=== PATIENT | male | born 1955 | race Caucasian/White ===

== ENCOUNTER 2021-04-19 05:22 | Inpatient (IN) | payer OTHER ==
[~2021-04-19] VITALS: Ht 172.7 cm; Wt 86.2 kg
[2021-04-19] VITALS (16 sets, daily range): BP systolic 94–140; BP diastolic 56–110
--- NOTE | 2021-04-19 05:30 | NUR ---
PATIENT BIBRA 81 FROM [facility] FOR SOB AND LOW O2 SAT, 80% ON SCENE, 15L NONRBR UPON ARRIVAL. PATIENT IS A/O X 4, RR LABORED, PATIENT ON 15L NON REBREATHER O2 AT 100%. PATIENT CONNECTED TO FACIALIST AND POX.
--- NOTE | 2021-04-19 05:36 | NUR ---
RT AT BED SIDE TO PLACE PT ON BIPAP
--- NOTE | 2021-04-19 05:45 | NUR ---
RT NOTES PT placed on BIPAP via large face mask on settings IPAP 15, EPAP 5, RATE 16, FIO2 40% per MD Christina. Ambubag at bedside. Will cont to monitor.
[2021-04-19 05:49] LABS: BASOPHILS % (AUTO) 0.6 % (0.0-2.0); EOSINOPHILS % (AUTO) 2.6 % (0.0-6.0); HEMATOCRIT 32 % (39-51); HEMOGLOBIN 9.8 g/dL (13.5-17.5); LYMPHOCYTES # (AUTO) 1.3 K/uL (0.8-4.8); LYMPHOCYTES % (AUTO) 17.2 % (20.0-44.0); MEAN CORPUSCULAR HGB CONC 31 g/dl (31.0-36.0); MEAN CORPUSCULAR VOLUME 76 fL (80-96); MONOCYTES # (AUTO) 0.8 K/uL (0.1-1.30); MONOCYTES % (AUTO) 10.4 % (2.0-12.0); NEUTROPHILS # (AUTO) 5.1 K/uL (1.8-8.9); NEUTROPHILS % (AUTO) 69.2 % (43.0-81.0); PLATELET COUNT (AUTO) 230 K/uL (150-450); RED BLOOD CELL COUNT(AUTO) 4.17 MIL/uL (4.5-6.0); WHITE BLOOD COUNT (AUTO) 7.4 K/uL (4.3-11.0)
--- NOTE | 2021-04-19 06:00 | NUR ---
dr redmond at bed side
--- NOTE | 2021-04-19 06:10 | NUR ---
move sheet submitted
[2021-04-19 06:18] LABS: CALCIUM, SERUM 8.8 mg/dL (8.5-10.1); CARBON DIOXIDE 26 mmol/L (21-32); CHLORIDE 106 mmol/L (98-107); GLUCOSE 164 mg/dL (74-106); POTASSIUM 4.1 mmol/L (3.5-5.1); SODIUM SERUM 141 mmol/L (136-145); UREA NITROGEN, BLOOD 20 mg/dL (7-18)
--- NOTE | 2021-04-19 06:24 | NUR ---
COVID SWAB COLLECTED AND SENT TO LAB
[2021-04-19] MEDS ORDERED: FUROSEMIDE 20 MG/2 ML VIAL ONE (06:25)
--- NOTE | 2021-04-19 06:27 | NUR ---
ICU 257 AFTER CHANGE OF SHIFT PER NURS SUP
[2021-04-19] MEDS ORDERED: FUROSEMIDE 20 MG/2 ML VIAL IV ONE (06:30)
--- NOTE | 2021-04-19 07:01 | NUR ---
[facility] CM CALLED TO INFORM THEY ARE STILL AWAITING APPROVAL FROM ADMITTING DOCTOR. WILL CALL BACK IN A FEW MINUTES.
--- NOTE | 2021-04-19 07:15 | NUR ---
DR MORENO ON THE PHONE WITH DR XIAO
--- NOTE | 2021-04-19 07:25 | NUR ---
DR. ESPINO ACCEPTED THE PATIENT FOR ADMISSION.
--- NOTE | 2021-04-19 07:37 | NUR ---
REPORT GIVEN TO ANJEL DUFFY IN ICU.
--- NOTE | 2021-04-19 07:40 | NUR ---
RN NOTE REPORT RECEIVED FROM BRICK VENEER MAKERCLIVE MELGAR.
[2021-04-19 08:14] LABS: ABG BASE EXCESS 5.2 mmol/L; ABG OXYGEN SATURATION 97.1 % (92.0-98.5); ABG PCO2 49.2 mmHg (35.0-45.0); ABG PH 7.413 (7.350-7.450); ABG PO2 103.5 mmHg (75.0-100.0); AaDO2 125.1 mmHg; COHb 0.5 % (0.5-1.5); MetHb 0.2 % (0.0-1.5); O2Hb 96.4 % (94.0-97.0); SITE, ABG Right Radial; VENT MODE, BG ST 15/5 BUR 16 40%
[2021-04-19] MEDS ORDERED: DEXTROSE 50%-WATER 50 ML DISP.SYRIN IV PRN (08:30)
--- NOTE | 2021-04-19 08:45 | NUR ---
DR. ESPINO AT BEDSIDE.
--- NOTE | 2021-04-19 09:02 | NUR ---
PATIENT TRANSFERRED TO ROOM 254 VIA ACLS PROTOCOL, PATIENT ON HEAVY EQUIPMENT OPERATOR/PAVER. NO DSITRESS NOTED. NEEDS ATTENDED. ENDORSED TO ANJEL DUFFY.
[2021-04-19] MEDS: ALBUTEROL HALF STRENGTH 1.25 MG/3 ML VIAL.NEB NEB SCH ×3 (09:03→19:58)
[2021-04-19] MEDS: IPRATROPIUM NEB FS 0.5 MG/2.5 ML AMPUL.NEB NEB SCH ×3 (09:03→19:58)
--- NOTE | 2021-04-19 09:05 | NUR ---
RN RECEIVING NOTES RECEIVED PATIENT A&O X4, ON O2 5L VIA NASAL CANNULA SATURATING WELL. NOT IN ANY DISTRESS. ST ON BEDSIDE MONITOR. PERIPHERAL LINES X2 RIGHT ARM. NO COMPLAINS OF PAIN. SAFETY CHECKS IN PLACE. WILL CONTINUE TO MONITOR.
[2021-04-19] MEDS: CEFTRIAXONE 1 G in IV D5W 50 ML IV SCH (09:12)
[2021-04-19] MEDS: CARVEDILOL 6.25 MG TABLET PO SCH ×2 (09:20→21:23)
[2021-04-19] MEDS: FUROSEMIDE 40 MG/4 ML VIAL IV SCH ×2 (09:20→17:09)
[2021-04-19] MEDS: LISINOPRIL (20MG) 20 MG TABLET PO SCH (09:21)
[2021-04-19] MEDS: AZITHROMYCIN 500 MG in IV D5W 250 ML IV SCH (09:31)
[2021-04-19] MEDS: APIXABAN 5 MG TABLET PO SCH ×2 (09:31→17:12)
[2021-04-19] MEDS: BLOOD SUGAR DIAGNOSTIC 1 EACH STRIP VI SCH ×3 (11:11→21:33)
[2021-04-19] MEDS: INSULIN REGULAR, HUMAN 100 UNIT/ML 3 ML VIAL SQ PRN ×3 (11:14→21:34)
--- NOTE | 2021-04-19 18:09 | NUR ---
RN NOTES PATIENT SATURATING 97% ON 3L NASAL CANNULA. NOT IN ANY RESPIRATORY DISTRESS. SR ON BEDSIDE MONITOR. TOLERATING MEALS. BLOOD SUGAR ELEVATED AND WAS COVERED WITH INSULIN ACCORDINGLY. DUE MEDICATIONS GIVEN, VOIDING ADEQUATELY WITH THE URINAL. SAFETY CHECKS IN PLACE. WILL ENDORSE TO NIGHT RN FOR CONTINUITY OF CARE.
--- NOTE | 2021-04-19 19:41 | NUR ---
RN NOTE PATIENT AWAKE, RESPONSIVE. ABLE TO MAKE NEEDS KNOWN. ON O2 3L VIA NASAL CANNULA, NO SIGNS OF RESPIRATORY DISTRESS AT THIS TIME. O2 SAT >97%. DENIES ANY PAIN AT THIS TIMEE. IV ACCESS ON RIGHT FOREARM #18 AND RIGHT AC #20 PATENT AND INTACT. BED LOCKED AND IN LOWEST POSITION. CALL LIGHT WITHIN REACH. ALL NEEDS ANTICIPATED.
[2021-04-19] MEDS ORDERED: ZOLPIDEM TARTRATE 5 MG TABLET PO PRN (21:00)
[2021-04-19] MEDS: ATORVASTATIN 10 MG TABLET PO SCH (21:23)
[2021-04-19] MEDS: ACETAMINOPHEN 325 MG TABLET PO PRN (21:24)
[2021-04-19] MEDS: *INSULIN REGULAR(HUMULIN R)HUM 100 UNIT/ML VIAL SQ PRN (21:49)
[2021-04-20] VITALS (14 sets, daily range): BP systolic 110–156; BP diastolic 65–128
[2021-04-20] MEDS: IPRATROPIUM NEB FS 0.5 MG/2.5 ML AMPUL.NEB NEB SCH ×4 (01:03→19:56)
[2021-04-20] MEDS: ALBUTEROL HALF STRENGTH 1.25 MG/3 ML VIAL.NEB NEB SCH ×4 (01:03→19:56)
[2021-04-20 04:27] LABS: BASOPHILS % (AUTO) 0.5 % (0.0-2.0); EOSINOPHILS % (AUTO) 4.9 % (0.0-6.0); HEMATOCRIT 32 % (39-51); HEMOGLOBIN 10.1 g/dL (13.5-17.5); LYMPHOCYTES # (AUTO) 1.8 K/uL (0.8-4.8); LYMPHOCYTES % (AUTO) 30.5 % (20.0-44.0); MEAN CORPUSCULAR HGB CONC 31 g/dl (31.0-36.0); MEAN CORPUSCULAR VOLUME 76 fL (80-96); MONOCYTES # (AUTO) 0.6 K/uL (0.1-1.30); MONOCYTES % (AUTO) 10.1 % (2.0-12.0); NEUTROPHILS # (AUTO) 3.2 K/uL (1.8-8.9); PLATELET COUNT (AUTO) 256 K/uL (150-450); RED BLOOD CELL COUNT(AUTO) 4.27 MIL/uL (4.5-6.0)
[2021-04-20 04:43] LABS: CREATININE 1.1 mg/dL (0.6-1.3); POTASSIUM 3.6 mmol/L (3.5-5.1)
[2021-04-20 04:58] LABS: THYROID STIMULATING HORMONE 1.121 uIU/mL (0.358-3.74)
--- NOTE | 2021-04-20 06:50 | NUR ---
RN NOTE PATIENT ALERT AND ORIENTED X3. ON O2 3L VIA NASAL CANNULA, NO SIGNS OF RESPIRATORY DISTRESS AT THIS TIME. O2 SAT >98%. IV ACCESS ON RIGHT FOREARM #18 AND RIGHT AC #20 PATENT AND INTACT. NO SIGNIFICANT CHANGES DURING THIS SHIFT. VOIDED 1875 CC YELLOW CLEAR URINE VIA URINAL. BED LOCKED AND IN LOWEST POSITION. CALL LIGHT WITHIN REACH. WILL ENDORSE TO AM SHIFT.
--- NOTE | 2021-04-20 07:08 | NUR ---
WOUND CARE CONSULT: PT SEEN FOR 5TH TOE AMPUTATION SCAR TO RT FOOT, PRESENT ON ADMISSION. PT ALSO NOTED TO HAVE SACRAL SCAR. PT STATES HAD SACRAL WOUND YEARS AGO. PT DEMONSTRATES ABILITY TO TURN AND REPOSITION IN BED AND IS CONTINENT AT THIS TIME. WILL SEE PRN.
--- NOTE | 2021-04-20 07:30 | NUR ---
RN OPENING NOTES RECEIVED PATIENT A&O X4. SATURATING 98% ON 3L NASAL CANNULA AND NOT IN ANY RESPIRATORY DISTRESS. AFIB ON BEDSIDE MONITOR. PERIPHERAL LINES X2 AT THE RIGHT ARM. PASSING URINE VIA URINAL. NO COMPLAINS OF CHEST PAIN OR PAIN ELSEWHERE IN THE BODY. SAFETY CHECKS IN PLACE. WILL CONTINUE TO MONITOR.
[2021-04-20] MEDS: BLOOD SUGAR DIAGNOSTIC 1 EACH STRIP VI SCH ×4 (08:09→21:18)
[2021-04-20] MEDS: APIXABAN 5 MG TABLET PO SCH ×2 (08:10→16:32)
[2021-04-20] MEDS: CARVEDILOL 6.25 MG TABLET PO SCH (08:10)
[2021-04-20] MEDS: FUROSEMIDE 40 MG/4 ML VIAL IV SCH ×2 (08:11→16:30)
[2021-04-20] MEDS: INSULIN REGULAR, HUMAN 100 UNIT/ML 3 ML VIAL SQ PRN ×3 (08:11→17:27)
[2021-04-20] MEDS: CEFTRIAXONE 1 G in IV D5W 50 ML IV SCH (08:11)
[2021-04-20] MEDS: LISINOPRIL (20MG) 20 MG TABLET PO SCH (08:12)
[2021-04-20] MEDS ORDERED: LOSA50TA39 PO (08:36)
[2021-04-20] MEDS ORDERED: INSU100I4 SQ ×2 (08:36)
[2021-04-20] MEDS ORDERED: MULT-439 PO (08:36)
[2021-04-20] MEDS ORDERED: INSU100V7 SQ (08:36)
[2021-04-20] MEDS ORDERED: METO200T49 PO (08:36)
[2021-04-20] MEDS ORDERED: LINA5TAB PO (08:36)
[2021-04-20] MEDS ORDERED: APIX5TAB PO (08:36)
[2021-04-20] MEDS ORDERED: DIGO250T PO (08:36)
[2021-04-20] MEDS ORDERED: ACET325T53 PO (08:36)
[2021-04-20] MEDS ORDERED: GABA-532 PO (08:36)
[2021-04-20] MEDS ORDERED: ATOR20TA PO (08:36)
[2021-04-20] MEDS ORDERED: ASCO500C17 PO (08:36)
[2021-04-20] MEDS ORDERED: FLUT1BLS IH (08:36)
[2021-04-20] MEDS ORDERED: IPRA4AER IH (08:36)
[2021-04-20] MEDS ORDERED: PANT40TA2 PO (08:36)
[2021-04-20] MEDS ORDERED: AMLO5TAB4 PO (08:36)
[2021-04-20] MEDS: FERROUS SULFATE (325 MG) 325 MG/TAB TABLET PO SCH ×2 (08:38→16:31)
[2021-04-20] MEDS: AZITHROMYCIN 500 MG in IV D5W 250 ML IV SCH (09:02)
--- NOTE | 2021-04-20 10:45 | NUR ---
RN NOTE REPORT GIVEN TO CLIVE SCOTT FOR CONTINUITY OF CARE. PATIENT ARRIVED AT RM 321-2 IN STABLE CONDITION AND NOT IN ANY DISTRESS. BELONGINGS HANDED OVER TO RN.
--- NOTE | 2021-04-20 11:34 | NUR ---
MS RN NOTES PT TRANSFERRED FROM ICU TO UNIT RM 321-2 VIA WHEELCHAIR AT 1100 ACCOMPANIED BY DRINK WAITER MILENA. PT IS A/O X4. ABLE TO MAKE NEEDS KNOWN, DENIES PAIN OR ANY DISCOMFORTS. ON 02 VIA N/C AT 3LPM, TOLERATING WELL WITH NO C/O SOB VOICED. PIV'S ON RAC G#20 AND RFA G#18 BOTH INTACT AND PATENT. SKIN IS INTACT. LEFT FOOT WITH ALL TOES AMPUTATED AND RIGHT 5TH TOE AMPUTATED WITH NO ACTIVE DRAINAGE NOTED. SAFETY MEASURES IMPLEMENTED: BED PLACED IN LOWEST LOCKED POSITION WITH SR UP X2. CALL LIGHT W/I EASY REACH OF PT. WILL CONTINUE TO MONITOR PT.
[2021-04-20] MEDS: INSULIN ASPART/LISPRO 100 UNIT/ML CARTRIDGE SQ SCH ×2 (13:00→17:28)
[2021-04-20] MEDS ORDERED: Medication Not On Formulary EA (Ipratropium/Albuterol Sulfate (Combivent Respimat 20-100 IH PRN (13:00)
[2021-04-20] MEDS ORDERED: ACETAMINOPHEN 325 MG TABLET PO PRN (13:00)
[2021-04-20] MEDS ORDERED: HOME MED MISCELLANEOUS XX SCH (13:00)
[2021-04-20] MEDS: GABAPENTIN 300 MG CAPSULE PO SCH ×2 (13:05→16:30)
--- NOTE | 2021-04-20 13:27 | NUR ---
RN NOTES PHYSICAL THERAPY EVALLUATION DONE BY JAIME MERCER DEMONSTRATED SAFE GAIT WITH FWW AND IS SAFE TO WALK WITH STAFF SUPERVISION.
[2021-04-20] MEDS: AMLODIPINE BESYLATE 5 MG TABLET PO SCH (16:31)
[2021-04-20] MEDS ORDERED: APIXABAN 5 MG TABLET PO SCH (17:00)
--- NOTE | 2021-04-20 18:50 | NUR ---
MS ARLIN NOTES PT IN BED WATCHING TV AT THIS TIME. HOB KEPT ELEVATED. A/O X4. ABLE TO MAKE NEEDS KNOWN. ON SUPPLEMENTAL 02 VIA N/C AT 3LPM, TOLERATING WELL WITH NO SOB NOTED AT THIS TIME. PIV'S ON RAC G#20 AND RFA G#18 BOTH INTACT, PATENT AND FLUSHES WELL. ALL NEEDS AND CARE ATTENDED WELL. SAFETY MEASURES KEPT IN PLACE: BED LOCKED AND AT LOWEST POSITION, SIDE-RAILS UP X2 AND CALL LIGHT WITH EASY REACH OF PT. WILL ENDORSE ANTON TO DIESEL PILE DRIVER OPERATOR NURSE.
[2021-04-20] MEDS: ATORVASTATIN 10 MG TABLET PO SCH (21:17)
[2021-04-20] MEDS: LOSARTAN POTASSIUM 50 MG TABLET PO SCH (21:18)
[2021-04-20] MEDS: *INSULIN REGULAR(HUMULIN R)HUM 100 UNIT/ML VIAL SQ PRN (21:44)
[2021-04-20] MEDS ORDERED: INSULIN GLARGINE, 100 UNIT/ML CARTRIDGE SQ SCH (22:00)
[2021-04-20] MEDS ORDERED: Medication Not On Formulary EA (Atorvastatin Calcium (Lipitor) 20 MG) PO SCH (22:00)
[2021-04-21] MEDS: ACETAMINOPHEN 325 MG TABLET PO PRN (01:14)
--- NOTE | 2021-04-21 01:15 | NUR ---
RN NOTES PATIENT ASKED FOR TYLENOL - TYLENOL 650MG PO GIVEN ORDERED
[2021-04-21] MEDS: ALBUTEROL HALF STRENGTH 1.25 MG/3 ML VIAL.NEB NEB SCH ×3 (01:55→13:32)
[2021-04-21] MEDS: IPRATROPIUM NEB FS 0.5 MG/2.5 ML AMPUL.NEB NEB SCH ×3 (01:55→13:32)
[2021-04-21 06:16] LABS: BASOPHILS # (AUTO) 0.1 K/uL (0.0-0.2); BASOPHILS % (AUTO) 0.8 % (0.0-2.0); EOSINOPHILS % (AUTO) 3.9 % (0.0-6.0); HEMATOCRIT 36 % (39-51); HEMOGLOBIN 11.1 g/dL (13.5-17.5); LYMPHOCYTES # (AUTO) 2.1 K/uL (0.8-4.8); LYMPHOCYTES % (AUTO) 28.2 % (20.0-44.0); MEAN CORPUSCULAR HGB CONC 31 g/dl (31.0-36.0); MEAN CORPUSCULAR VOLUME 76 fL (80-96); MONOCYTES # (AUTO) 0.9 K/uL (0.1-1.30); NEUTROPHILS # (AUTO) 4.2 K/uL (1.8-8.9); NEUTROPHILS % (AUTO) 55.1 % (43.0-81.0); PLATELET COUNT (AUTO) 305 K/uL (150-450); RED BLOOD CELL COUNT(AUTO) 4.68 MIL/uL (4.5-6.0); WHITE BLOOD COUNT (AUTO) 7.5 K/uL (4.3-11.0)
[2021-04-21] MEDS: INSULIN REGULAR, HUMAN 100 UNIT/ML 3 ML VIAL SQ PRN ×3 (06:19→16:47)
--- NOTE | 2021-04-21 07:00 | NUR ---
RN NOTES AWAKE, DENIES PAIN, NO SOB, MORNING CARE RENDERED, PT. NEEDS ATTENDED
[2021-04-21 07:09] LABS: CALCIUM, SERUM 9.2 mg/dL (8.5-10.1); CREATININE 1.2 mg/dL (0.6-1.3); MAGNESIUM 1.8 mg/dL (1.8-2.4); POTASSIUM 3.5 mmol/L (3.5-5.1)
[2021-04-21] MEDS: BLOOD SUGAR DIAGNOSTIC 1 EACH STRIP VI SCH ×3 (07:33→16:47)
[2021-04-21] MEDS: GABAPENTIN 300 MG CAPSULE PO SCH ×3 (08:11→16:28)
[2021-04-21] MEDS: FERROUS SULFATE (325 MG) 325 MG/TAB TABLET PO SCH ×2 (08:11→16:28)
[2021-04-21] MEDS: AMLODIPINE BESYLATE 5 MG TABLET PO SCH ×2 (08:12→16:14)
[2021-04-21] MEDS: APIXABAN 5 MG TABLET PO SCH ×2 (08:17→16:29)
[2021-04-21] MEDS: INSULIN ASPART/LISPRO 100 UNIT/ML CARTRIDGE SQ SCH ×2 (08:31→13:51)
[2021-04-21 08:38] VITALS: BP 126/91
[2021-04-21] MEDS ORDERED: FURO-144 PO (08:55)
[2021-04-21] MEDS ORDERED: POTA20PA41 PO (08:55)
[2021-04-21] MEDS: CEFTRIAXONE 1 G in IV D5W 50 ML IV SCH (08:56)
[2021-04-21] MEDS ORDERED: LEVO500T90 PO (08:56)
[2021-04-21] MEDS ORDERED: FLUTICASONE/VILANTEROL 1 EACH BLST.W.DEV IH SCH (09:00)
[2021-04-21] MEDS ORDERED: DIGOXIN 0.25 MG TABLET PO SCH (09:00)
[2021-04-21] MEDS ORDERED: ASCORBIC ACID 500 MG TABLET PO SCH (09:00)
[2021-04-21] MEDS: FUROSEMIDE 40 MG/4 ML VIAL IV SCH ×2 (09:00→16:29)
[2021-04-21] MEDS ORDERED: FERR325T23 PO (09:00)
[2021-04-21] MEDS ORDERED: METOPROLOL SUCCINATE 50 MG TAB.SR.24H PO SCH (09:00)
[2021-04-21] MEDS ORDERED: PANTOPRAZOLE 40 MG TABLET.DR PO SCH (09:00)
[2021-04-21] MEDS ORDERED: LINAGLIPTIN 5 MG TABLET PO SCH (09:00)
[2021-04-21] MEDS ORDERED: MULTIVIT W/MINERALS 1 TAB TABLET PO SCH (09:00)
--- NOTE | 2021-04-21 09:30 | NUR ---
m/s preschool assistant director: md visit seen and examined by dr. elias with order okay to discharge back to [facility]. pt aware. order acknowledged.
[2021-04-21] MEDS: LOSARTAN POTASSIUM 50 MG TABLET PO SCH (09:35)
--- NOTE | 2021-04-21 09:45 | NUR ---
m/s subsystems engineer: notes pt called his daughter and made aware re: d'c back to snf today. eta unknown, cm to make arrangement.
[2021-04-21] MEDS: AZITHROMYCIN 500 MG in IV D5W 250 ML IV SCH (10:08)
--- NOTE | 2021-04-21 11:30 | NUR ---
m/s healthcare sales representative: notes ben (baylee) called and informed me that [employer] will make arrangement for his ambulance metal pickling equipment operator. pt made aware.
--- NOTE | 2021-04-21 14:34 | NUR ---
m/s japanese tutor: notes f/u made to ben (baylee) and informed me that the facility hasn't given out the room and [facility] hasn't arrange the transportation.
--- NOTE | 2021-04-21 14:45 | NUR ---
m/s movement therapist: notes pt talking to his sister on the phone at this time. pt made re: authorization from his insurance to arrange transportation per cm.
--- NOTE | 2021-04-21 15:00 | NUR ---
m/s content administrator: notes ben (cm) called and ambulance pickers material handlers set up at 1730. pt made aware and wants me to call his son. jai (son) notified and made aware re: d'c back to the [facility], spoke to him over the phone. report given to tricia ([facility] office machine repair shop supervisor) at [facility] for continuity of care.
--- NOTE | 2021-04-21 15:30 | NUR ---
m/s angle dozer operator: notes discharge instructions given to pt and verbalized understanding. eta at 1700.
[2021-04-21 16:14] VITALS: BP 107/70
--- NOTE | 2021-04-21 17:35 | NUR ---
m/s mate chief: notes ambulance here and report given to one of the crew. 2 h/l removed to right arm with tip intact.
--- NOTE | 2021-04-21 17:50 | NUR ---
m/s noxious weeds and pest inspector: discharge discharge to [facility] via ambulance accompanied by 2 crew in stable condition with valuables.
[2021-04-22] MEDS ORDERED: AZITHROMYCIN 250 MG TABLET PO SCH (09:00)
== END 2021-04-21 17:45 | DRG 189 ==
LOC: ER 05:25 → ICU 07:41 → MED 04-20 10:45
PROVIDERS: ADMIT Internal Medicine; ATTEND Internal Medicine
PROC: 5A09357 Assistance with Respiratory Ventilation, Less than 24 Consecutive Hours, Continuous Positive Airway Pressure (ICD-10-PCS; principal; 2021-04-19)
DX: J96.01 Acute respiratory failure with hypoxia (principal); J15.9 Unspecified bacterial pneumonia; I50.33 Acute on chronic diastolic (congestive) heart failure; I11.0 Hypertensive heart disease with heart failure; E78.5 Hyperlipidemia, unspecified; E11.51 Type 2 diabetes mellitus with diabetic peripheral angiopathy without gangrene; I48.0 Paroxysmal atrial fibrillation; D50.9 Iron deficiency anemia, unspecified; E66.9 Obesity, unspecified; I70.0 Atherosclerosis of aorta; Z87.891 Personal history of nicotine dependence; Z20.822 Contact with and (suspected) exposure to COVID-19
CPT/HCPCS: 36415; 36600; 71045-TC; 71250-TC; 80048-TC; 80162-TC; 82803-TC; 82962-TC; 83540-TC; 83735-TC; 83880; 84443-TC; 84484-TC; 85025-TC; 93307-TC; 94760-TC; 94799-TC; 97116-TC; 97530-TC; C9803; G0378; J0456; J0696; J1815; J1940; J7050; J7060